=== PATIENT | female | born 1945 | race Two or more races ===

== ENCOUNTER 2017-10-27 19:26 | Inpatient (IN) | payer MEDICARE, OTHER ==
[~2017-10-27] VITALS: Ht 157.5 cm; Wt 66.3 kg
[2017-10-27 20:23] LABS: Basophils # (auto) 0 uL; Eosinophils # (auto) 0 uL; Eosinophils % (auto) 0.1 % (0.0-7.0); Hematocrit 42.8 % (36.0-46.0); Hemoglobin 13.6 g/dL (12.2-16.2); Lymphocytes # (auto) 1.1 uL; Lymphocytes % (auto) 5.7 % (10.0-50.0); Mean Corpuscular Hemoglobin 30.3 pg (28.0-32.0); Mean Corpuscular Hgb Conc. 31.9 g/dL (32.0-36.0); Mean Corpuscular Volume 94.8 fL (80.0-100.0); Monocytes % (auto) 5.3 % (0.0-12.0); Neutrophils # (auto) 17.4 uL; Neutrophils % (auto) 88.9 % (37.0-80.0); Nucleated Red Blood Cells % 0.4 %; Platelet Count (auto) 100 10^3/uL (140-450); Red Blood Cells 4.51 10^6/uL (4.0-5.20); Red Cell Distribution Width 15.6 % (11.8-14.3); White Blood Cell 19.6 10^3/uL (4.4-10.8)
[2017-10-27] MEDS ORDERED: SODIUM CHLORIDE 0.9% 1,000 ML IV ONE (20:30)
[2017-10-27 20:44] LABS: Lactic Acid w/Reflex 8.3 mmol/L (0.4-2.0)
[2017-10-27 21:04] LABS: INR 1.88 (0.9-1.15); Prothrombin Time 19.4 sec (9.27-12.13)
[2017-10-27 21:12] LABS: Potassium 5.1 mmol/L (3.5-5.1)
[2017-10-27 21:13] LABS: Albumin 2.7 g/dL (3.4-5.0); BUN/Creatinine Ratio 13.4; Bilirubin, Total 2.1 mg/dL (0.2-1.0); Total Protein 6.5 g/dL (6.4-8.2)
[2017-10-27] MEDS ORDERED: NOREPINEPHRINE 8 MG/250ML KIT 250 ML IV ONE (21:40)
[2017-10-27] MEDS ORDERED: HEPARIN SODIUM (PORCINE) 5000 UNITS/ML 1ML VIAL IV ONE (21:45)
[2017-10-27] MEDS ORDERED: ASPirin 325 MG TAB PO ONE (21:45)
[2017-10-27] MEDS: NOREPINEPHRINE 8 MG/250ML KIT 250 ML IV SCH (21:53)
[2017-10-28] VITALS (84 sets, daily range): BP systolic 77–180; BP diastolic 41–114
[2017-10-28] MEDS ORDERED: DIGOXIN (250MCG/ML) 2 ML AMPULE IV ONE (00:15)
[2017-10-28] MEDS ORDERED: cefTRIAXone 1GM/10ml IVPUSH 10 ML IV ONE (00:30)
[2017-10-28] MEDS ORDERED: VANCOMYCIN 1GM/250ML 250 ML IV ONE (00:30)
[2017-10-28] MEDS ORDERED: MORPHINE SULFATE 4 MG/ML SYR/VIAL IV PRN (01:15)
[2017-10-28] MEDS ORDERED: ACETAMINOPHEN 325 MG TAB PO PRN (01:15)
[2017-10-28] MEDS ORDERED: SODIUM CHLORIDE 0.9% 1,000 ML IV SCH (01:15)
[2017-10-28] MEDS ORDERED: VANCOMYCIN PER PHARMACY 0 MG IV SCH (01:15)
[2017-10-28] MEDS ORDERED: NITROGLYCERIN 0.4 MG SL TAB SL PRN (01:15)
[2017-10-28] MEDS: PIPERACILLIN-TAZOB 2.25GM 50 ML IV SCH ×3 (05:54→22:00)
[2017-10-28] MEDS ORDERED: ENOXAPARIN SOD 60 MG/0.6 ML SYRINGE SC SCH (06:00)
[2017-10-28 09:33] LABS: Albumin 2.6 g/dL (3.4-5.0); BUN/Creatinine Ratio 15.1; Bilirubin, Total 1.8 mg/dL (0.2-1.0); Calcium 6.8 mg/dL (8.5-10.1); Potassium 4.8 mmol/L (3.5-5.1); Total Protein 6.5 g/dL (6.4-8.2)
[2017-10-28 09:41] LABS: Urine Amorphous Crystal FEW /hpf (None Seen); Urine Bacteria MOD /hpf (None Seen); Urine Blood 3+ /uL (Negative); Urine WBC 190 /hpf (0 - 5); Urine WBC Clumps PRESENT /hpf (None Seen)
[2017-10-28 09:45] LABS: Creatinine, Urine 138 mg/dL (30.0-125.0); Sodium Urine 43 mmol/L (40-220)
[2017-10-28] MEDS: ENOXAPARIN SOD 60 MG/0.6 ML SYRINGE SC SCH (09:59)
[2017-10-28] MEDS ORDERED: ASPirin 81 mg TAB PO SCH (10:00)
[2017-10-28] MEDS ORDERED: ALBUMIN 25% 100 ML IV ONE (10:00)
[2017-10-28] MEDS ORDERED: DOPamine 1600MCG/ML D5W 250 ML IV SCH (10:15)
[2017-10-28] MEDS ORDERED: DOPamine 3200MCG/ML 250 ML IV SCH (10:47)
[2017-10-28] MEDS: SODIUM BICARBONATE 50ML VIAL 50 ML in D5W/SOD CHL 0.45% 1,000 ML IV SCH ×3 (11:46→20:00)
[2017-10-28] MEDS: ONDANSETRON HCL 4 MG/2 ML VIAL IV PRN (12:23)
[2017-10-28] MEDS ORDERED: PANTOPRAZOLE 40 MG/10 ML VIAL IV ONE (12:30)
[2017-10-28] MEDS ORDERED: LIDOCAINE 1% (LOCAL ANESTH.) PF 5ml SDV ID ONE (13:45)
[2017-10-28] MEDS ORDERED: SODIUM CHLORIDE 0.9% 500 ML IV ONE (14:00)
[2017-10-28] MEDS ORDERED: PIPERACILLIN-TAZOB 2.25GM 50 ML IV SCH (14:00)
[2017-10-28] MEDS: CHLORHEXIDINE 0.12% ORAL rinse 473ML MT SCH ×2 (14:54→22:00)
[2017-10-28] MEDS: ALBUMIN 25% 100 ML IV SCH ×2 (15:53→23:45)
[2017-10-28] MEDS: HYDROmorphone HCL 2 MG/ML VL IV PRN (15:54)
[2017-10-28] MEDS: NOREPINEPHRINE 8 MG/250ML KIT 250 ML IV SCH ×2 (17:00→23:00)
[2017-10-28] MEDS: LACTULOSE 20Gm/30ML SOLN PO SCH (18:00)
[2017-10-28] MEDS: SODIUM CHLOR 0.9% PF (SALINE LOCK) 10ML VIAL/SYR IV SCH (22:00)
[2017-10-29] VITALS (89 sets, daily range): BP systolic 73–135; BP diastolic 45–85
[2017-10-29] MEDS ORDERED: VANCOMYCIN 1GM/250ML 250 ML IV ONE (02:00)
[2017-10-29 04:01] LABS: Basophils # (auto) 0.1 uL; Basophils % (auto) 0.5 % (0.0-2.0); Eosinophils # (auto) 0.1 uL; Eosinophils % (auto) 0.3 % (0.0-7.0); Hemoglobin 12.7 g/dL (12.2-16.2); Lymphocytes # (auto) 0.9 uL; Lymphocytes % (auto) 4.6 % (10.0-50.0); Mean Corpuscular Hemoglobin 28.9 pg (28.0-32.0); Mean Corpuscular Volume 93.1 fL (80.0-100.0); Monocytes # (auto) 0.6 uL; Monocytes % (auto) 3.4 % (0.0-12.0); Neutrophils # (auto) 17.3 uL; Neutrophils % (auto) 91.2 % (37.0-80.0); Platelet Count (auto) 67 10^3/uL (140-450); Red Cell Distribution Width 15.5 % (11.8-14.3)
[2017-10-29 04:18] LABS: Albumin 3.4 g/dL (3.4-5.0); BUN/Creatinine Ratio 15.4; Calcium 6.1 mg/dL (8.5-10.1); Potassium 4.4 mmol/L (3.5-5.1)
[2017-10-29 04:23] LABS: Phosphorus 6.4 mg/dL (2.5-4.90); Uric Acid 11.1 mg/dL (2.6-6.0)
[2017-10-29 04:27] LABS: Bilirubin, Total 1.3 mg/dL (0.2-1.0); Total Protein 5.9 g/dL (6.4-8.2)
[2017-10-29] MEDS: SODIUM BICARBONATE 50ML VIAL 50 ML in D5W/SOD CHL 0.45% 1,000 ML IV SCH ×2 (06:00→20:00)
[2017-10-29] MEDS: LACTULOSE 20Gm/30ML SOLN PO SCH ×4 (06:00→17:42)
[2017-10-29] MEDS: PIPERACILLIN-TAZOB 2.25GM 50 ML IV SCH ×3 (06:00→22:00)
[2017-10-29] MEDS: NOREPINEPHRINE 8 MG/250ML KIT 250 ML IV SCH ×2 (06:52→17:42)
[2017-10-29] MEDS: ALBUMIN 25% 100 ML IV SCH (08:13)
[2017-10-29] MEDS: ENOXAPARIN SOD 60 MG/0.6 ML SYRINGE SC SCH (09:31)
[2017-10-29] MEDS: SODIUM CHLOR 0.9% PF (SALINE LOCK) 10ML VIAL/SYR IV SCH ×2 (09:31→22:00)
[2017-10-29 09:34] LABS: Hepatitis B Surface Antibody Negative
[2017-10-29 09:54] LABS: Hepatitis A Total Antibody Negative
[2017-10-29] MEDS: ONDANSETRON HCL 4 MG/2 ML VIAL IV PRN ×2 (09:54→14:08)
[2017-10-29] MEDS: ASPirin 81 mg TAB PO SCH (09:56)
[2017-10-29] MEDS: CHLORHEXIDINE 0.12% ORAL rinse 473ML MT SCH ×2 (09:56→22:00)
[2017-10-29] MEDS ORDERED: PANTOPRAZOLE 40 MG/10 ML VIAL IV SCH (10:00)
[2017-10-29] MEDS ORDERED: BUMETANIDE (0.25MG/ML) 4 ML VIAL IV ONE (10:45)
[2017-10-29] MEDS ORDERED: CALCIUM GLUC 4.65meq/50ml D5AE 50 ML IV ONE ×3 (10:45→22:00)
[2017-10-29] MEDS ORDERED: SODIUM CHLORIDE 0.9% 500 ML IV ONE (10:45)
[2017-10-29 10:53] LABS: Hepatitis B Core Total AB Negative; Hepatitis B Surface Antigen Negative (Negative); Hepatitis C Antibody Negative (Negative)
[2017-10-29] MEDS: HYDROmorphone HCL 2 MG/ML VL IV PRN (15:28)
[2017-10-29] MEDS: CALCIUM ACETATE 667 MG CAP PO SCH (17:43)
[2017-10-29] MEDS: PANTOPRAZOLE 40 MG/10 ML VIAL IV SCH (22:00)
[2017-10-30] VITALS (58 sets, daily range): BP systolic 82–140; BP diastolic 46–77
[2017-10-30] MEDS ORDERED: CALCIUM GLUC 4.65meq/50ml D5AE 50 ML IV ONE (02:00)
[2017-10-30] MEDS ORDERED: VANCOMYCIN 1GM/250ML 250 ML IV SCH (02:00)
[2017-10-30] MEDS: ONDANSETRON HCL 4 MG/2 ML VIAL IV PRN (03:06)
[2017-10-30 03:47] LABS: Basophils # (auto) 0.2 uL; Eosinophils # (auto) 0.2 uL; Hemoglobin 12.4 g/dL (12.2-16.2); Lymphocytes # (auto) 0.6 uL; Monocytes # (auto) 0.9 uL; White Blood Cell 17.5 10^3/uL (4.4-10.8)
[2017-10-30 03:50] LABS: Basophils % (auto) 1.2 % (0.0-2.0); Eosinophils % (auto) 1.1 % (0.0-7.0); Hematocrit 38.2 % (36.0-46.0); Lymphocytes % (auto) 3.5 % (10.0-50.0); Mean Corpuscular Hemoglobin 29.8 pg (28.0-32.0); Mean Corpuscular Hgb Conc. 32.5 g/dL (32.0-36.0); Mean Corpuscular Volume 91.7 fL (80.0-100.0); Monocytes % (auto) 5.3 % (0.0-12.0); Neutrophils # (auto) 15.5 uL; Neutrophils % (auto) 88.9 % (37.0-80.0); Nucleated Red Blood Cells % 0.4 %; Platelet Count (auto) 54 10^3/uL (140-450); Red Blood Cells 4.17 10^6/uL (4.0-5.20); Red Cell Distribution Width 15.1 % (11.8-14.3)
[2017-10-30 04:08] LABS: Albumin 2.6 g/dL (3.4-5.0); BUN/Creatinine Ratio 14.2
[2017-10-30 04:18] LABS: Bilirubin, Total 1.1 mg/dL (0.2-1.0); Total Protein 5.1 g/dL (6.4-8.2)
[2017-10-30] MEDS: HYDROmorphone HCL 2 MG/ML VL IV PRN ×2 (05:36→21:09)
[2017-10-30] MEDS: PIPERACILLIN-TAZOB 2.25GM 50 ML IV SCH (06:00)
[2017-10-30] MEDS: LACTULOSE 20Gm/30ML SOLN PO SCH ×3 (06:00→12:00)
[2017-10-30] MEDS: SODIUM BICARBONATE 50ML VIAL 50 ML in D5W/SOD CHL 0.45% 1,000 ML IV SCH ×2 (07:33→16:51)
[2017-10-30] MEDS: CALCIUM ACETATE 667 MG CAP PO SCH ×2 (08:00→12:00)
[2017-10-30] MEDS: DIGOXIN (250MCG/ML) 2 ML AMPULE IV SCH ×3 (09:33→21:09)
[2017-10-30] MEDS: ASPirin 81 mg TAB PO SCH (10:00)
[2017-10-30] MEDS: SODIUM CHLOR 0.9% PF (SALINE LOCK) 10ML VIAL/SYR IV SCH (10:06)
[2017-10-30] MEDS: PANTOPRAZOLE 40 MG/10 ML VIAL IV SCH (10:06)
[2017-10-30] MEDS: ENOXAPARIN SOD 60 MG/0.6 ML SYRINGE SC SCH (10:06)
[2017-10-30] MEDS: CHLORHEXIDINE 0.12% ORAL rinse 473ML MT SCH (10:07)
[2017-10-30] MEDS: NOREPINEPHRINE 8 MG/250ML KIT 250 ML IV SCH (10:21)
== END 2017-10-31 00:59 | DRG 871 ==
LOC: EDBD 19:26 → ER 19:35 → OVERFLOW 19:36 → ICU WEST 10-28 02:37
PROVIDERS: ADMIT Nurse Practitioner; ATTEND Internal Medicine
PROC: 02HV33Z Insertion of Infusion Device into Superior Vena Cava, Percutaneous Approach (ICD-10-PCS; principal; 2017-10-28)
DX: A41.9 Sepsis, unspecified organism (principal); R65.21 Severe sepsis with septic shock; I21.4 Non-ST elevation (NSTEMI) myocardial infarction; G93.41 Metabolic encephalopathy; E43 Unspecified severe protein-calorie malnutrition; J96.00 Acute respiratory failure, unspecified whether with hypoxia or hypercapnia; N17.0 Acute kidney failure with tubular necrosis; N17.9 Acute kidney failure, unspecified; D68.9 Coagulation defect, unspecified; C78.7 Secondary malignant neoplasm of liver and intrahepatic bile duct; N39.0 Urinary tract infection, site not specified; Z51.5 Encounter for palliative care; Z66 Do not resuscitate; D69.59 Other secondary thrombocytopenia; E83.39 Other disorders of phosphorus metabolism; I07.1 Rheumatic tricuspid insufficiency; E86.0 Dehydration; I11.9 Hypertensive heart disease without heart failure; I48.91 Unspecified atrial fibrillation; J44.9 Chronic obstructive pulmonary disease, unspecified; K57.30 Diverticulosis of large intestine without perforation or abscess without bleeding; M19.90 Unspecified osteoarthritis, unspecified site; M77.9 Enthesopathy, unspecified; M85.80 Other specified disorders of bone density and structure, unspecified site; N20.0 Calculus of kidney; Z85.3 Personal history of malignant neoplasm of breast; Z87.442 Personal history of urinary calculi; Z87.891 Personal history of nicotine dependence; Z79.82 Long term (current) use of aspirin; Z79.899 Other long term (current) drug therapy; Z68.26 Body mass index [BMI] 26.0-26.9, adult
CPT/HCPCS: 36415; 36569; 36600; 70450; 71045; 71250; 74176; 76700; 76775; 80053; 80202; 81001; 82105; 82140; 82378; 82570; 82805; 82962; 83605; 83735; 83880; 84100; 84300; 84484; 84550; 85025; 85610; 85730; 86704; 86706; 86708; 86803; 87040; 87081; 87086; 87340; 93005; 93306; 93926; 96361; 96365; 96375; C9113; G0378; J0610; J0696; J1265; J2405; J2543; P9047